=== PATIENT | male | born 1990 | race Caucasian/White ===

== ENCOUNTER 2022-02-21 09:11 | Outpatient (CLI) | payer OTHER, SELFPAY ==
--- OUTSIDE RECORDS SUMMARY | 2022-03-01 10:47 | XMS_ITS | Clinical Summary ---
:1990 Author Organization [facility] [place] [address] Care Team Providers Name Role Phone Jose Alberto Nunes MD Primary Care Provider [phone] Allergies No known active allergies Medications Medication Sig Dispensed Refills Start Date End Date Status cyclobenzaprine Take 1 tablet by 24 tablet 1 08/25/2019 Active (FLEXERIL) 10 mg mouth at bedtime tabletIndications: if needed for Thoracic disc herniation Muscle Spasm. 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 Major depressive disorder, recurrent episode, moderate 06/13/2010 Adjustment disorder with depressed mood 04/14/2009 Resolved Problems Problem Noted Date Resolved Date Depressive disorder, not elsewhere classified 05/29/2006 08/27/2009 Immunizations Name Administration Dates Next Due DTP 02/21/1995, 02/22/1994, 06/09/1990, 01/27/1990, 1989 HIB HbOC (HibTITER) 06/09/1990 Hepatitis B (Peds) 09/19/2000, 12/29/1999, 12/18/1999 Influenza, IIV3 (Age >=3 years) 05/01/2000 MMR 02/10/2002, 10/26/1990 Oral Polio Vaccine 02/21/1995, 02/22/1994, 01/27/1990, 1989 Td (Age >=7 Years) 02/10/2002 Tdap 10/06/2012 Tuberculin (PPD) 05/12/2017, 11/27/2016 Social History Tobacco Use Types Packs/Day Years Used Date Never Smoker Smokeless Tobacco: Never Used Tobacco Cessation: Counseling Given: Yes Alcohol Use Standard Drinks/Week Comments Yes 0 (1 standard drink = 0.6 oz pure alcoho l) Alcohol Habits Answer Date Recorded How often do you have a drink containing alcohol? Monthly or less 08/22/2018 How many drinks containing alcohol do you have on a 1 or 2 08/22/2018 typical day when you are drinking? How often do you have six or more drinks on one Never 08/22/2018 occasion? Comment: Not asked Sex Assigned at Date Recorded Not on file Obstetrics History Last Filed Vital Signs Vital Sign Reading Time Taken Comments Blood Pressure 146/74 11/17/2019 2:11 PM CDT Pulse 87 11/17/2019 2:11 PM CDT Temperature 37 ??C (98.6 ??F) 11/17/2019 2:11 PM CDT Respiratory Rate 14 04/03/2017 1:28 PM CDT Oxygen Saturation 98% 11/17/2019 2:11 PM CDT Inhaled Oxygen Concentration - - Weight 104.3 kg (230 lb) 11/17/2019 2:11 PM CDT Height 188 cm (6' 2) 08/22/2018 9:13 AM BAND DIRECTOR Body Mass Index 29.53 08/22/2018 9:13 AM BAND DIRECTOR Plan of Treatment Health Maintenance Due Date Last Done Comments COVID-19 vaccine series (#1) 01/16/1990 Hepatitis C screening for age 0107/19/2007 18-79 Depression screening for age 12+ 11/27/2017 11/27/2016, 04/2016 BMI (ht and wt on same day) for 08/23/2019 08/22/2018, 03/23, age 18+ 01/10/2017, Additional history exists Influenza for age 9-49 02/21/2022 05/01/2000 Tetanus booster 10/06/2022 10/06/2012, 02/10/2002 Tdap Completed 10/06/2012 Results Not on filefrom Last 3 Months Insurance Payer Benefit Plan / Subscriber ID Effective Dates Phone Addre ss Type Group PREFERRED ONE PREFERRED ONE [id number] 2018-Present [address] [place] [address] Care Teams Gasoline Finisher Relationship Specialty Start Date End Date Jose Alberto Nunes MD PCP - General 06/03/07 [address] [place] [address]
== END 2022-02-21 09:12 | disposition home or self-care (01) ==
LOC: NFLDREF 03-01 09:34
PROVIDERS: PCP Family Medicine; Visit Provider Family Medicine
DX: Z11.52 Encounter for screening for COVID-19 (principal)
CPT/HCPCS: 87635

== ENCOUNTER 2022-04-30 15:56 | Emergency (ER) | payer OTHER, SELFPAY ==
[2022-04-30 16:06] VITALS: BP 170/91; RESP 18; TEMP 37.3; O2SAT 98; BMI 29.7
--- NOTE | 2022-04-30 16:30 | CRLHL7_ITS ---
For Patients: As a result of the Century Cures Act, medical imaging exams and procedure reports are released immediately into your electronic medical record. You may view this report before your referring provider. If you have questions, please contact your health care provider. INDICATION: AFib last night. TECHNIQUE: Chest 1 view. COMPARISON: Chest radiograph 10/06/2021. FINDINGS: No focal consolidation, pleural effusion, or pneumothorax. Normal heart size and pulmonary vascularity. The bones are unremarkable. IMPRESSION: No acute cardiopulmonary findings. Dictated by Celsa Acosta MD @ 04/30/2022 6:02:06 PM (Electronically Signed)
[2022-04-30 17:00] VITALS: BP 133/81; PULSE 71; RESP 12; O2SAT 97
[2022-04-30 17:18] LABS: Basophils Absolute Auto 0.03 K/uL (0.00-0.30); Basophils Percent Auto 0.5 % (0.0-3.0); Eosinophils Absolute Auto 0.16 K/uL (0.00-0.50); Eosinophils Percent Auto 2.6 % (0.0-7.0); Hematocrit 52.3 % (37.0-53.0); Hemoglobin* 17.2 gm/dL (13.5-17.5); Immature Granulocytes Abs Auto 0.01 K/uL (0.00-0.30); Immature Granulocytes Pct Auto 0.2 %; Lymphocytes Absolute Auto 1.72 K/uL (0.90-2.90); Lymphocytes Percent Auto 28.4 % (20-44); Mean Corpuscular HGB Conc 33 gm/dL (32-36); Mean Corpuscular Hemoglobin 30 pg (26-34); Mean Corpuscular Volume 91 fL (80-100); Neutrophils Absolute Auto 3.28 K/uL (1.7-7.0); Neutrophils Percent Auto 54.3 % (42.0-72.0); Platelet Count* 257 K/uL (140-440); RDW Coefficient of Variation % 13.8 % (11.5-15.5); Red Blood Count 5.78 m/uL (4.30-5.90); White Blood Count* 6.05 K/uL (4.50-11.00)
--- OUTSIDE RECORDS SUMMARY | 2022-04-30 17:23 | XMS_ITS | Clinical Summary ---
:1990 Author Organization [facility] [place] [address] Care Team Providers Name Role Phone Jose Alberto Nunes MD Primary Care Provider [phone] Allergies No known active allergies Medications Medication [...] 188 cm (6' 2) 08/22/2018 9:13 AM HOME DESIGNER Body Mass Index 29.53 08/22/2018 9:13 AM HOME DESIGNER Plan of Treatment Health Maintenance Due Date [...] ss Type Group PREFERRED ONE PREFERRED ONE [id number] 2018-Present [address] [place] [address] Care Teams Emergency Specialist Relationship Specialty Start Date End Date Jose Alberto Nunes MD PCP - General 06/03/07 [address] [place] [address]
[2022-04-30 17:30] VITALS: BP 125/78; PULSE 79; RESP 16; O2SAT 98
[2022-04-30 17:34] LABS: Slide Review Reflex No
[2022-04-30 17:35] LABS: Chloride* 103 mmol/L (96-114); Sodium* 139 mmol/L (135-149)
[2022-04-30 17:38] LABS: Blood Urea Nitrogen* 17 mg/dL (5-24); Calcium* 9.3 mg/dL (8.4-10.6); Carbon Dioxide* 27 mmol/L (20-32); Creatinine* 1.6 mg/dL (0.5-1.5); Est. Creatinine Clearance* 74.91; Estimated Glomerular Filt Rate 58 ml/min; Glucose* 87 mg/dL (60-115)
[2022-04-30 17:42] LABS: D Dimer Quantitative* < 0.27 ug/ml (0.00-0.50)
[2022-04-30 17:52] LABS: Troponin I* < 0.01 ng/mL (0.01-0.04)
[2022-04-30 18:00] VITALS: BP 135/88; PULSE 77; RESP 18; O2SAT 98
--- NOTE | 2022-04-30 18:03 | ED_ITS ---
HPI - Arrhythmia/Palpitations General Chief Complaint: Arrhythmia/Palpitations Stated Complaint: Afib last night Time Seen by Provider: 04/30/22 16:00 History of Present Illness HPI narrative: Pt is an otherwise healthy 31 year old gentleman who during exercise last night developed palpitations. Pt felt somewhat breathless during this event. Pt rested and his symptoms improved athough the sensation of a rapid irregular heart beat persisted. Pt's watch began telling him shortly after exercise that he was in atrial fibrillation. This persisted until this morning at which time the watch indicated that he was back in sinus rhythm. I was able to review his watch EKG and it appeared to show sinus rhythm. Pt states his heart rate is usually 60 and because the rate persisted in the 80's he presented to his PCP where EKG showed sinus rhythm with ST segment depression most strikingly in leads II and AVF. Pt presents to the ED for further evaluation. No stimulant use or history of similar symptoms. Related Data Home Medications Medication Instructions Recorded Confirmed multivitamin (Daily Multi-Vitamin 1 tab PO QDAY 12/31/21 04/30/22 tablet) omega 6-eiv-oam-fish oil 300 1 cap PO QDAY 12/31/21 04/30/22 mg-1,000 mg capsule (Fish Oil) cholecalciferol (vitamin D3) 125 125 mcg PO QDAY 04/30/22 04/30/22 mcg (5,000 unit) capsule Allergies Allergy/AdvReac Type Severity Reaction Status Date / Time No Known Drug Allergies Allergy Verified 04/30/22 14:58 Review of Systems Status of ROS: Reports: 10 or more systems reviewed and unremarkable except as noted in History and below PFSH PFS Medical History Attention deficit hyperactivity disorder (ADHD) Depression History of herniated intervertebral disc Hyperlipidemia Hypothyroidism Surgical History History of arthroscopy of right knee Social History Smoking Status: Never smoker Do you use any of these nicotine containing products: None Second hand tobacco smoke exposure: No How often do you have a drink containing alcohol: monthly or less How many standard drinks containing alcohol do you have on a typical day: 1 or 2 How often do you have six or more drinks on one occasion: Never AUDIT-C Alcohol total score: 1 Non-prescribed substance use: denies use Little interest or pleasure in doing things: several days Feeling down, depressed, or hopeless: several days service: No Exam Narrative: Exam Narrative: EXAM GENERAL: Patient appears comfortable and well. EYES: No scleral icterus. ENT: Tympanic membranes and oropharynx normal. THYROID: no thyroid nodules or thyromegaly. LYMPH: No supraclavicular or cervical lymphadenopathy. SKIN: Visible skin seen during exam normal or with benign process only. EXT: No dependent lower extremity pedal edema. HEART: Regular rate and rhythm with no murmurs, rubs, or gallops. LUNGS: Clear to auscultation bilaterally with no crackles or wheezes. ABD: Soft, non tender, non distended. PSYCH: Good eye contact, speech is not pressured. Const: Vital Signs, click to edit/add: Vital Signs - 24 hr 04/30/22 16:06 Temperature 99.1 F Respiratory Rate 18 [facility] 170/91 H Pulse Oximetry 98 Oxygen Delivery Me thod Room Air Course Course Hospital Course: Pt seen and examined. CXR, Troponin, D Dimer, CBC, BMP ordered. Pt placed on tele Reevaluation(s) Reevaluation #1: Labs return. Normal. Pt resting comfortably. EKG sent to Cardiology for over read. Time: 18:10 Vital Signs Vital signs: Initial Vital Signs Temperature 99.1 F 04/30/22 16:06 Temperature Source Temporal Artery Scan 04/30/22 16:06 Respiratory Rate 18 04/30/22 16:06 Blood Pressure 170/91 H 04/30/22 16:06 Blood Pressure Mean 117 04/30/22 16:06 Blood Pressure Position Sitting 04/30/22 16:06 Pulse Oximetry 98 04/30/22 16:06 Oxygen Delivery Method 04/30/22 16:06 Vital Signs Temperature 99.1 F 04/30/22 16:06 Respiratory Rate 18 04/30/22 16:06 Blood Pressure 170/91 H 04/30/22 16:06 Pulse Oximetry 98 04/30/22 16:06 Oxygen Delivery Method 04/30/22 16:06 Temperature 99.1 F 04/30/22 16:06 Respiratory Rate 18 04/30/22 16:06 Blood Pressure 170/91 H 04/30/22 16:06 Pulse Oximetry 98 04/30/22 16:06 Oxygen Delivery Method 04/30/22 16:06 MDM - Arrhythmia/Palpitations MDM Narrative Medical decision making narrative: Pt present with concerning symptoms of palpitations. Largely resolved. EKG shows ST segment depression inferiorly. Labs including Troponin, D dimer, CBC, BMP CXR all reassuring. Pt's EKG shared with cardiology who feel the changes seen are due to repolarization. Pt will be discharged with outpt Echo and Holter, PCP follow up. Differential Diagnosis Differential diagnosis: Likely palpitations, anxiety, sinus tachycardia, artial fibrillation, artial flutter, ventricular premature beats, supraventricular tachycardia, ventricular tachycardia and WPW Lab Data Labs: Lab Results 04/30/22 04/30/22 04/30/22 Range/Units 17:14 17:14 17:14 WBC 6.05 (4.50-11.00) K/uL RBC 5.78 (4.30-5.90) m/uL Hgb 17.2 (13.5-17.5) gm/dL Hct 52.3 (37.0-53.0) % MCV 91 (80-100) fL MCH 30 (26-34) pg MCHC 33 (32-36) gm/dL RDW Coeff of Doron 13.8 (11.5-15.5) % Plt Count 257 (140-440) K/uL Neut % (Auto) 54.3 (42.0-72.0) % Lymph % (Auto) 28.4 (20-44) % [place] % (Auto) 14.0 H (0.0-11.0) % Eos % (Auto) 2.6 (0.0-7.0) % Baso % (Auto) 0.5 (0.0-3.0) % Neut # (Auto) 3.28 (1.7-7.0) K/uL Lymph # (Auto) 1.72 (0.90-2.90) K/uL [place] # (Auto) 0.80 (0.00-0.90) K/UL Eos # (Auto) 0.16 (0.00-0.50) K/uL Baso # (Auto) 0.03 (0.00-0.30) K/uL Abs Immat Gran (auto) 0.01 (0.00-0.30) K/uL Imm/Tot Granulo (auto) 0.2 % D-Dimer Quant (PE/DVT) < 0.27 (0.00-0.50) ug/ml Sodium 139 (135-149) mmol/L Potassium 4.0 (3.6-5.1) mmol/L Chloride 103 (96-114) mmol/L Carbon Dioxide 27 (20-32) mmol/L BUN 17 (5-24) mg/dL Creatinine 1.6 H (0.5-1.5) mg/dL Estimated Creat Clear 74.91 Estimated GFR 58 ml/min Glucose 87 (60-115) mg/dL Calcium 9.3 (8.4-10.6) mg/dL Troponin I < 0.01 L (0.01-0.04) ng/mL Discharge Plan Discharge Clinical Impression: Heart palpitations Patient Disposition: Home, Self-Care Condition: Stable Instructions: Heart Palpitations (ED) Additional Instructions: Holter Monitor and Echo through PCP Follow up if symptoms worsen. Activity Level: No Restrictions Discharge Diet: Regular Prescriptions: No Action multivitamin [Daily Multi-Vitamin] Tablet 1 tab PO QDAY omega 1-lyr-pxi-fish oil [Fish Oil] 300-1,000 mg capsule 1 cap PO QDAY cholecalciferol (vitamin D3) 125 mcg (5,000 unit) capsule 125 mcg PO QDAY Follow Up/Referrals: Jose Alberto Nunes MD [Primary Care Provider] - Stand Alone Forms: MyHealth Info Instructions
== END 2022-04-30 18:32 | disposition home or self-care (01) ==
PROVIDERS: Emergency Provider Internal Medicine; PCP Family Medicine
DX: R00.2 Palpitations (principal)
CPT/HCPCS: 36415; 71045; 80048; 84484; 85025; 85379; 99283

== ENCOUNTER 2022-05-03 13:26 | Outpatient (CLI) | payer OTHER, SELFPAY ==
--- OUTSIDE RECORDS SUMMARY | 2022-05-03 13:29 | XMS_ITS | Clinical Summary ---
:1990 Author Organization [facility] [place] [address] Care Team Providers Name Role Phone Jose Alberto Nunes MD Primary Care Provider [phone] Allergies No known active allergies Medications Medication [...] 188 cm (6' 2) 08/22/2018 9:13 AM ORGANIZATIONAL CONSULTANT Body Mass Index 29.53 08/22/2018 9:13 AM ORGANIZATIONAL CONSULTANT Plan of Treatment Health Maintenance Due Date [...] ss Type Group PREFERRED ONE PREFERRED ONE [id number] 2018-Present [address] [place] [address] Care Teams Driver Messenger Relationship Specialty Start Date End Date Jose Alberto Nunes MD PCP - General 06/03/07 [address] [place] [address]
== END 2022-05-03 13:27 | disposition home or self-care (01) ==
LOC: RAD 13:26
PROVIDERS: PCP Family Medicine; Visit Provider Internal Medicine
DX: R00.2 Palpitations (principal); R93.3 Abnormal findings on diagnostic imaging of other parts of digestive tract
CPT/HCPCS: 93225; 93226; 93306

== ENCOUNTER 2022-05-07 06:47 | Emergency (ER) | payer OTHER, SELFPAY ==
--- NOTE | 2022-05-07 06:50 | ED_ITS ---
HPI - Chest Pain General Time Seen by Provider: 06:50 Date Seen: 05/07/22 Chief Complaint: Chest Pain Stated Complaint: Chest pain Time Seen by Provider: 05/07/22 06:48 Source: patient, RN notes reviewed and old records reviewed Mode of arrival: ambulatory Limitations: no limitations History of Present Illness HPI narrative: Tri is a very pleasant 31-year-old gentleman with a history hyperlipidemia who comes to the emergency room for evaluation of chest pain. Chest pain is under in ongoing since April 30. It is associated with significant fatigue and exercise intolerance. Hans had the onset of chest discomfort and fluttering in his chest on the evening of April 29. He had just finished being very active when he had the chest fluttering and a rapid heart rate into the 120s. He laid back down and his elevated heart rate persisted. His phone even signal that he was in atrial fibrillation which he had never experienced before. He was seen on 04/30 at which time an EKG did show ST depression and T-wave inversion in the inferior lateral leads. However, he had a negative troponin, chest x-ray that was negative and was discharged with instructions to have outpatient echocardiogram. His echocardiogram was done on 05/03 and was normal and reassuring. However, he tells me that he still has ongoing discomfort in his chest but more concerning to him is is exercise intolerance. He is somebody that normally bike 60 miles a week and works out daily. He notes that now simply dressing himself takes extra effort. He does not describe significant shortness of breath but just the inability to complete exercise. He states that he is able to do a light walk but anything more than that increases his symptoms of chest discomfort and fatigue. He denies a cough, fever, nausea, vomiting, diarrhea, painful urination, lower extremity edema history of DVT or calf pain. Related Data Home Medications Medication Instructions Recorded Confirmed multivitamin (Daily Multi-Vitamin 1 tab PO QDAY 12/31/21 04/30/22 tablet) omega 0-glv-ozk-fish oil 300 1 cap PO QDAY 12/31/21 04/30/22 mg-1,000 mg capsule (Fish Oil) cholecalciferol (vitamin D3) 125 125 mcg PO QDAY 04/30/22 04/30/22 mcg (5,000 unit) capsule Allergies Allergy/AdvReac Type Severity Reaction Status Date / Time No Known Drug Allergies Allergy Verified 04/30/22 14:58 Review of Systems Const Reports: fatigue; Denies: fever or chills Eyes Denies: change in vision ENMT Denies: throat pain, neck pain, difficulty swallowing or vertigo Cardio Reports: chest pain and palpitations; Denies: edema or swelling of feet/ankles Resp Denies: cough GI Denies: abdominal pain, nausea, vomiting, heartburn, diarrhea or difficulty swallowing Denies: painful urination Musculo Denies: back pain, neck pain or extremity swelling Integ/Breast Denies: rash Neuro Denies: headache, dizziness or vertigo Endo Reports: fatigue; Denies: excessive urination PFSH PFS Medical History Attention deficit hyperactivity disorder (ADHD) Depression History of herniated intervertebral disc Hyperlipidemia Hypothyroidism Surgical History History of arthroscopy of right knee Social History Smoking Status: Never smoker Do you use any of these nicotine containing products: None Second hand tobacco smoke exposure: No How often do you have a drink containing alcohol: monthly or less How many standard drinks containing alcohol do you have on a typical day: 1 or 2 How often do you have six or more drinks on one occasion: Never AUDIT-C Alcohol total score: 1 Non-prescribed substance use: denies use Little interest or pleasure in doing things: several days Feeling down, depressed, or hopeless: several days service: No Exam Narrative Exam Narrative: Hans is alert and oriented. No acute distress. Eyes are clear and face is symmetrical. Neck is supple without lymphadenopathy. Heart with a regular rate and rhythm. However simply sitting up increases heart rate from 70s to low 100s. There is no rub or murmur auscultated. No rub when patient is leaning forward. Lungs are clear in all lung ho. Abdomen soft nontender. Lower extremities without edema. Calf palpation is without tenderness. Negative Homans sign. Const Vital Signs, click to edit/add: Vital Signs - 24 hr 05/07/22 07:00 Temperature 98.7 F Pulse Rate [Right Pulse Oximeter] 74 Respiratory Rate 16 Blood Pressure [Right Upper Arm] 127/69 Pulse Oximetry 98 Oxygen Delivery Method Room Air Documenting provider has reviewed patient's vital signs: yes Course Course Hospital Course: At this time patient has had ongoing chest pain and exercise intolerance for 7 days. He denies fever, trauma, history of DVT/PE or history of underlying cardiac disease. His initial troponin and EKG were done on 04/30. EKG was abnormal with ST depression and T-wave inversion in the inferior lateral leads but a normal troponin, chest x-ray and echocardiogram. As patient has ongoing discomfort we will repeat the EKGs, troponins as well as place patient on cardiac monitoring. Will plan on CT of the chest with normal creatinine. Will plan on cardiac consultation. Reevaluation(s) Reevaluation #1: Patient's creatinine is 1.7. He has hemoglobin of 19 which is increased suggesting hemoconcentration. He is given 2 L of normal saline with planned recheck of creatinine so that we are able to go forward with CT of the chest. Consultations Consultation #1: Had the pleasure of speaking with Dr. Sierra [facility] Cardiology physician. At this time EKGs are reviewed by Dr. Sierra. He does agree with proceeding with CT of the chest. He also believes this gentleman should have a CTA even though we have a negative D-dimer and reassuring initial troponin. Vital Signs Vital signs: Initial Vital Signs Temperature 98.7 F 05/07/22 07:00 Temperature Source Temporal Artery Scan 05/07/22 07:00 Pulse Rate 74 05/07/22 07:00 Pulse Rhythm 05/07/22 07:00 Pulse Strength 0+ Absent 05/07/22 07:00 Respiratory Rate 16 05/07/22 07:00 Blood Pressure 127/69 05/07/22 07:00 Blood Pressure Mean 88 05/07/22 07:00 Blood Pressure Position Supine 05/07/22 07:00 Pulse Oximetry 98 05/07/22 07:00 Oxygen Delivery Method 05/07/22 07:00 Vital Signs Temperature 98.7 F 05/07/22 07:00 Pulse Rate 74 05/07/22 07:00 Respiratory Rate 16 05/07/22 07:00 Blood Pressure 127/69 05/07/22 07:00 Pulse Oximetry 98 05/07/22 07:00 Oxygen Delivery Method 05/07/22 07:00 Temperature 98.7 F 05/07/22 07:00 Pulse Rate 74 05/07/22 07:00 Respiratory Rate 16 05/07/22 07:00 Blood Pressure 127/69 05/07/22 07:00 Pulse Oximetry 98 05/07/22 07:00 Oxygen Delivery Method 05/07/22 07:00 MDM - Chest Pain MDM Narrative Medical decision making narrative: 1. Chest pain 2. Exercise intolerance -negative echocardiogram. Initial troponin negative. EKG initially does show ST depression with T-wave inversion inferior lateral leads. 3. Disposition-signed out into the care of my partner Dr. Zamorano who will review 2nd troponin, creatinine, EKG. Dr. Sierra is our contact with [facility]. He will need to be contacted with results of CT of the chest. If negative CTA angiogram is suggested by Cardiology. Medical Records Data Attestation: I reviewed the patient's medical records. Lab Data Attestation: I reviewed the patient's lab results. Labs: Lab Results 05/07/22 05/07/22 05/07/22 Range/Units 06:48 06:48 06:48 WBC (4.50-11.00) K/uL RBC (4.30-5.90) m/uL Hgb (13.5-17.5) gm/dL Hct (37.0-53.0) % MCV (80-100) fL MCH (26-34) pg MCHC (32-36) gm/dL RDW Coeff of Doron (11.5-15.5) % Plt Count (140-440) K/uL Neut % (Auto) (42.0-72.0) % Lymph % (Auto) (20-44) % [place] % (Auto) (0.0-11.0) % Eos % (Auto) (0.0-7.0) % Baso % (Auto) (0.0-3.0) % Neut # (Auto) (1.7-7.0) K/uL Lymph # (Auto) (0.90-2.90) K/uL [place] # (Auto) (0.00-0.90) K/UL Eos # (Auto) (0.00-0.50) K/uL Baso # (Auto) (0.00-0.30) K/uL Abs Immat Gran (auto) (0.00-0.30) K/uL Imm/Tot Granulo (auto) % D-Dimer Quant (PE/DVT) < 0.27 (0.00-0.50) ug/ml Sodium 138 (135-149) mmol/L Potassium 4.3 (3.6-5.1) mmol/L Chloride 103 (96-114) mmol/L Carbon Dioxide 27 (20-32) mmol/L BUN 16 (5-24) mg/dL Creatinine 1.7 H (0.5-1.5) mg/dL Estimated Creat Clear 70.50 Estimated GFR 54 ml/min Glucose 95 (60-115) mg/dL Calcium 9.4 (8.4-10.6) mg/dL Magnesium 2.0 Cancelled (1.5-2.6) mg/dL Total Bilirubin 1.0 (0.1-1.5) mg/dL AST 32 (12-35) U/L ALT 33 (4-50) U/L Alkaline Phosphatase 39 L (40-150) U/L C-Reactive Protein < 0.5 L (0.5-1.0) mg/dL Total Protein 7.5 (6.0-8.3) g/dL Albumin 4.7 (3.3-5.0) g/dL TSH (0.270-4.20) uIU/mL SARS-CoV-2 (PCR) (Negative) Influenza Type A (PCR) (Negative) Influenza Type B (PCR) (Negative) RSV (PCR) (Negative) POC Troponin I (0.01-0.04) ng/ml 05/07/22 05/07/22 05/07/22 Range/Units 06:48 06:50 06:55 WBC 5.12 (4.50-11.00) K/uL RBC 6.30 H (4.30-5.90) m/uL Hgb 19.0 H (13.5-17.5) gm/dL Hct 56.9 H (37.0-53.0) % MCV 90 (80-100) fL MCH 30 (26-34) pg MCHC 33 (32-36) gm/dL RDW Coeff of Doron 13.3 (11.5-15.5) % Plt Count 233 (140-440) K/uL Neut % (Auto) 47.6 (42.0-72.0) % Lymph % (Auto) 34.6 (20-44) % [place] % (Auto) 11.5 H (0.0-11.0) % Eos % (Auto) 5.7 (0.0-7.0) % Baso % (Auto) 0.4 (0.0-3.0) % Neut # (Auto) 2.44 (1.7-7.0) K/uL Lymph # (Auto) 1.77 (0.90-2.90) K/uL [place] # (Auto) 0.60 (0.00-0.90) K/UL Eos # (Auto) 0.29 (0.00-0.50) K/uL Baso # (Auto) 0.02 (0.00-0.30) K/uL Abs Immat Gran (auto) 0.01 (0.00-0.30) K/uL Imm/Tot Granulo (auto) 0.2 % D-Dimer Quant (PE/DVT) (0.00-0.50) ug/ml Sodium (135-149) mmol/L Potassium (3.6-5.1) mmol/L Chloride (96-114) mmol/L Carbon Dioxide (20-32) mmol/L BUN (5-24) mg/dL Creatinine (0.5-1.5) mg/dL Estimated Creat Clear Estimated GFR ml/min Glucose (60-115) mg/dL Calcium (8.4-10.6) mg/dL Magnesium (1.5-2.6) mg/dL Total Bilirubin (0.1-1.5) mg/dL AST (12-35) U/L ALT (4-50) U/L Alkaline Phosphatase (40-150) U/L C-Reactive Protein (0.5-1.0) mg/dL Total Protein (6.0-8.3) g/dL Albumin (3.3-5.0) g/dL TSH 4.730 H (0.270-4.20) uIU/mL SARS-CoV-2 (PCR) (Negative) Influenza Type A (PCR) (Negative) Influenza Type B (PCR) (Negative) RSV (PCR) (Negative) POC Troponin I 0.00 L (0.01-0.04) ng/ml 11/15/22 Range/Units 07:52 WBC (4.50-11.00) K/uL RBC (4.30-5.90) m/uL Hgb (13.5-17.5) gm/dL Hct (37.0-53.0) % MCV (80-100) fL MCH (26-34) pg MCHC (32-36) gm/dL RDW Coeff of Doron (11.5-15.5) % Plt Count (140-440) K/uL Neut % (Auto) (42.0-72.0) % Lymph % (Auto) (20-44) % [place] % (Auto) (0.0-11.0) % Eos % (Auto) (0.0-7.0) % Baso % (Auto) (0.0-3.0) % Neut # (Auto) (1.7-7.0) K/uL Lymph # (Auto) (0.90-2.90) K/uL [place] # (Auto) (0.00-0.90) K/UL Eos # (Auto) (0.00-0.50) K/uL Baso # (Auto) (0.00-0.30) K/uL Abs Immat Gran (auto) (0.00-0.30) K/uL Imm/Tot Granulo (auto) % D-Dimer Quant (PE/DVT) (0.00-0.50) ug/ml Sodium (135-149) mmol/L Potassium (3.6-5.1) mmol/L Chloride (96-114) mmol/L Carbon Dioxide (20-32) mmol/L BUN (5-24) mg/dL Creatinine (0.5-1.5) mg/dL Estimated Creat Clear Estimated GFR ml/min Glucose (60-115) mg/dL Calcium (8.4-10.6) mg/dL Magnesium (1.5-2.6) mg/dL Total Bilirubin (0.1-1.5) mg/dL AST (12-35) U/L ALT (4-50) U/L Alkaline Phosphatase (40-150) U/L C-Reactive Protein (0.5-1.0) mg/dL Total Protein (6.0-8.3) g/dL Albumin (3.3-5.0) g/dL TSH (0.270-4.20) uIU/mL SARS-CoV-2 (PCR) Negative SARS-CoV-2 (Negative) Influenza Type A (PCR) Negative PCR FLU A (Negative) Influenza Type B (PCR) Negative PCR FLU B (Negative) RSV (PCR) Negative PCR RSV (Negative) POC Troponin I (0.01-0.04) ng/ml ECG Data Attestation: I personally reviewed and interpreted this ECG as follows: ECG interpretation date: 05/07/22 ECG interpretation time: 09:06 Prior ECG tracings: available for review Interpretation: EKG by my read shows sinus rhythm at a rate 95. Patient is noted to have ST depression in the inferior lateral leads with T-wave inversion. However this has improved somewhat since EKG from 04/30. Discharge Plan Discharge Prescriptions: No Action multivitamin [Daily Multi-Vitamin] Tablet 1 tab PO QDAY omega 8-zfj-npf-fish oil [Fish Oil] 300-1,000 mg capsule 1 cap PO QDAY cholecalciferol (vitamin D3) 125 mcg (5,000 unit) capsule 125 mcg PO QDAY Follow Up/Referrals: Jose Alberto Nunes MD [Staff Physician] -
[2022-05-07 07:00] VITALS: BP 127/69; PULSE 74; PULSE 92; RESP 16; RESP 18; TEMP 37.1; O2SAT 96; O2SAT 98; BMI 29.7
[2022-05-07 07:02] LABS: Basophils Absolute Auto 0.02 K/uL (0.00-0.30); Basophils Percent Auto 0.4 % (0.0-3.0); Eosinophils Absolute Auto 0.29 K/uL (0.00-0.50); Eosinophils Percent Auto 5.7 % (0.0-7.0); Hematocrit 56.9 % (37.0-53.0); Immature Granulocytes Abs Auto 0.01 K/uL (0.00-0.30); Immature Granulocytes Pct Auto 0.2 %; Lymphocytes Absolute Auto 1.77 K/uL (0.90-2.90); Lymphocytes Percent Auto 34.6 % (20-44); Mean Corpuscular HGB Conc 33 gm/dL (32-36); Mean Corpuscular Hemoglobin 30 pg (26-34); Mean Corpuscular Volume 90 fL (80-100); Monocytes Percent Auto 11.5 % (0.0-11.0); Neutrophils Absolute Auto 2.44 K/uL (1.7-7.0); Neutrophils Percent Auto 47.6 % (42.0-72.0); Platelet Count* 233 K/uL (140-440); RDW Coefficient of Variation % 13.3 % (11.5-15.5); White Blood Count* 5.12 K/uL (4.50-11.00)
[2022-05-07 07:08] LABS: Slide Review Reflex No
[2022-05-07 07:23] LABS: Albumin* 4.7 g/dL (3.3-5.0); Chloride* 103 mmol/L (96-114); Sodium* 138 mmol/L (135-149)
[2022-05-07 07:24] LABS: Potassium* 4.3 mmol/L (3.6-5.1)
[2022-05-07 07:26] LABS: Creatinine* 1.7 mg/dL (0.5-1.5); Estimated Glomerular Filt Rate 54 ml/min
[2022-05-07 07:27] LABS: Alanine Aminotransferase* 33 U/L (4-50); Alkaline Phosphatase* 39 U/L (40-150); Aspartate Amino Transferase* 32 U/L (12-35); Blood Urea Nitrogen* 16 mg/dL (5-24); Calcium* 9.4 mg/dL (8.4-10.6); Carbon Dioxide* 27 mmol/L (20-32); Glucose* 95 mg/dL (60-115); Total Protein* 7.5 g/dL (6.0-8.3)
[2022-05-07 07:31] LABS: C Reactive Protein* < 0.5 mg/dL (0.5-1.0)
--- OUTSIDE RECORDS SUMMARY | 2022-05-07 07:32 | XMS_ITS | Clinical Summary ---
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 Body Mass Index 29.53 08/22/2018 9:13 AM FUEL CELL ENGINEER Plan of Treatment Health Maintenance Due Date Last Done Comments COVID-19 vaccine series (#1) 01/16/1990 Hepatitis C screening for age 0107/19/2007 18-79 Depression screening for age 12+ 11/27/2017 11/27/2016, 04/2016 BMI (ht and wt on same day) for 08/23/2019 08/22/2018, 03/23, age 18+ 01/10/2017, Additional history exists Influenza for age 9-49 02/21/2022 05/01/2000 Tetanus booster 10/06/2022 10/06/2012, 02/10/2002 Tdap Completed 10/06/2012 Procedures Procedure Name Priority Date/Time Associated Diagnosis Comme nts ECHO COMPLETE WO Routine 05/03/2022 2:35 PM Palpitations Resul ts for this CONTRAST FUEL CELL ENGINEER procedure are i n the results section. from Last 3 Months Results ECHO COMPLETE WO CONTRAST (05/03/2022 2:35 PM FUEL CELL ENGINEER) P athologist Signature AORTIC VALVE 8 mmHg MEAN PG EJECTION 67 % FRACTION LVEDD 5.5 cm EJECTION 65 - 70% FRACTION Anatomical Region Laterality Modality HEART Ultrasound Specimen (Source) Anatomical Collection Method Collection Time Re ceived Time Location / / Volume Laterality 05/03/2022 2:12 PM FUEL CELL ENGINEER Narrative 05/03/2022 3:00 PM FUEL CELL ENGINEER ECHOCARDIOGRAM CHATO RAMIREZ ? Accessi on#: ?? [id number] : ?1990 31 years Study Date: ?? 05/03/2022 2:12:29 PM Gender: M ?BP: ? 154/80 mmHg Height: 185.00 cm ?BSA: ?2.26 m? ?? Weight: 102.00 kg ?Tech: ? MCK ? Referring MD: DIAZ WYATT Site: ? [facility] Reading Location: [facility] Procedure: 2D, Color Doppler and Spectra l Doppler. Indication for study: Palpitations, Abn EKG, ? inferior WMA Cardiac Rhythm: Regular.Study quality: G ood. Final Impressions: 1. Normal echocardiogram. 2. Normal LV size, normal wall thicknes s, normal function with an estimated EF of 65 - 70%. 3. Right ventricular cavity size is nor mal, global systolic RV function is normal. 4. No significant valve disease detecte d. Comparison There are no prior studies on this patie nt for comparison purposes. Chamber Sizes and Function Normal left ventricular size, normal wal l thickness, normal global systolic function with an estimated EF of 65 - 70%. Left atrial size is normal. Left atrial pressure is normal. Right ventricular cavit y size is normal, global systolic RV fun ction is normal. RV wall thickness is normal. The right atrium is normal. Right atrial volume index is 17 ml/m? ??. Right atrial area is 15 cm? ??. The pulmonary artery is of normal size and origin. The sinus of Valsalva is normal sized. The ascending aorta is normal sized. Valves, RV Pressures and Diastolic Funct ion The aortic valve is normal in structure and trileaflet, no stenosis and no regurgitation. The mitral valve is normal in structure, trace mitral regurgitation. Normal diastolic function. The tricuspid va lve is normal in structure. Tricuspid re gurgitation is trace regurgitation. The pulmonic valve is normal. No pulmonary regurgitation. Masses, Effusion, Shunts There is no pericardial effusion. The in ferior vena cava is normal sized, respiratory size variation greater than 50%. No left to right shunting was detected by limited color flow Doppler interrogation of the interatrial septum. MEASUREMENTS AND CALCULATIONS 2-D Measurements and LV Function: LVID (d) 5.5 cm LV FS% (2D) ?? 35 % LVID (s) 3.6 cm LVOT diameter 2.2 cm IVS (d) ??1.2 cm HR ?76 bpm LVPW (d) 1.2 cm LA Vol index ??20 ml/m2 Ao Sinus 2.9 cm RA Vol index ??17 ml/m2 Asc Ao ?? 3.0 cm RA area ? 15 cm? ?? LA ? 3.5 cm RV Max 4C (d) 2.8 cm Diastology: Mitral ?Tissue Doppler ?Pulmonary veins E Peak 1.0 m/s ??e', Septum ? 0.13 m /s Pulm s ?67.7 cm/s A Peak 0.6 m/s ??e', Lateral ?0.23 m /s Pulm d ?72.0 cm/s E/A ?1.8 ?E/e' Average ?? 5.7 8 ? Pulm s/d ratio ??0.94 DT ? 225 msec IVRT ?? 86 msec Aortic Valve: Vmax ? 2.1 m/s ??JONO (V) ?? 2.65 cm? ?? VTI ?0.36 m ?? JONO (I ) ?? 2.82 cm? ?? LVOT V max ? 1.5 m/s ??Max PG ?17 mmHg LVOT VTI ? 0.27 m ?? Mean PG ? ? 8 mmHg SV ? 101 ml ?? Dim In dex 0.76 SV index ? 45 ml/m? ?? CO ?7.6 l/min AV Ejection Time 0.28 sec CI ? 3.4 l/min/m? ?? AV Flow Rate ? 361 ml/s Mitral Valve: MVA ?3.4 cm? ?? MV P 1/2 65 msec Tricuspid Valve and estimated PA pressur es: TAPSE 3.0 cm . This study was interpreted by an [facility] red[facility] facility. CC: [facility]. ??Final ?? Procedure Note Chato Sierra MD - 05/03/2022Fo rmatting of this note might be different from the original. ECHOCARDIOGRAM CHATO RAMIREZ : 1990 31 years Study Date: 04/23 2:12:29 PM Gender: M BP: 154/80 mmHg Height: 185.00 cm BSA: 2.26 m? ?? Weight: 102.00 kg Tech: [place] Referring MD: DIAZ WYATT Site: [facility] Reading Location: [facility] Procedure: 2D, Color Doppler and Spectra l Doppler. Indication for study: Palpitations, Abn EKG, ? inferior WMA Cardiac Rhythm: Regular.Study quality: G ood. Final Impressions: 1. Normal echocardiogram. 2. Normal LV size, normal wall thicknes s, normal function with an estimated EF of 65 - 70%. 3. Right ventricular cavity size is nor mal, global systolic RV function is normal. 4. No significant valve disease detecte d. Comparison There are no prior studies on this patie nt for comparison purposes. Chamber Sizes and Function Normal left ventricular size, normal wal l thickness, normal global systolic function with an estimated EF of 65 - 70%. Left atrial size is normal. Left atrial pressure is normal. Right ventricular cavity size is normal, global systolic RV function is n ormal. RV wall thickness is normal. The right atrium is normal. Right atrial volume index is 17 ml/m? ??. Right atrial area is 15 cm? ??. The pulmonary artery is of normal size and origin. The sinus of Valsalva i s normal sized. The ascending aorta is normal sized. Valves, RV Pressures and Diastolic Funct ion The aortic valve is normal in structure and trileaflet, no stenosis and no regurgitation. The mitral valve is normal in structure, trace mitral regurgitation. Normal diastolic function. The tricuspid valve is normal in structure. Tricuspid regurgitation is tr joy regurgitation. The pulmonic valve is normal. No pulmonary regurgitation. Masses, Effusion, Shunts There is no pericardial effusion. The in ferior vena cava is normal sized, respiratory size variation greater than 50%. No left to right shunting was detected by limited color flow Doppler interrogation of the interatrial septum. MEASUREMENTS AND CALCULATIONS 2-D Measurements and LV Function: LVID (d) 5.5 cm LV FS% (2D) 35 % LVID (s) 3.6 cm LVOT diameter 2.2 cm IVS (d) 1.2 cm HR 76 bpm LVPW (d) 1.2 cm LA Vol index 20 ml/m2 Ao Sinus 2.9 cm RA Vol index 17 ml/m2 Asc Ao 3.0 cm RA area 15 cm? ?? LA 3.5 cm RV Max 4C (d) 2.8 cm Diastology: Mitral Tissue Doppler Pulmonary veins E Peak 1.0 m/s e', Septum 0.13 m/s Pulm s 67.7 cm/s A Peak 0.6 m/s e', Lateral 0.23 m/s Pulm d 72.0 cm/s E/A 1.8 E/e' Average 5.78 Pulm s/d ratio 0.94 DT 225 msec IVRT 86 msec Aortic Valve: Vmax 2.1 m/s JONO (V) 2.65 cm? ?? VTI 0.36 m JONO (I) 2.82 cm? ?? LVOT V max 1.5 m/s Max PG 17 mmHg LVOT VTI 0.27 m Mean PG 8 mmHg SV 101 ml Dim Index 0.76 SV index 45 ml/m? ?? CO 7.6 l/min AV Ejection Time 0.28 sec CI 3.4 l/min/m ? ?? AV Flow Rate 361 ml/s Mitral Valve: MVA 3.4 cm? ?? MV P 1/2 65 msec Tricuspid Valve and estimated PA pressur es: TAPSE 3.0 cm . This study was interpreted by [facility]. CC: [facility]. Final Diaz Wyatt MD ECHO ORD from Last 3 Months Insurance Payer Benefit Plan / Subscriber ID Effective Dates Phone Addre ss Type Group PREFERRED ONE PREFERRED ONE [id number] 2018-Present [address] [place] [address] Care Teams Manager Pacu Relationship Specialty Start Date End Date Jose Alberto Nunes MD PCP - General 06/03/07 [address] [place] [address]
[2022-05-07 07:39] LABS: D Dimer Quantitative* < 0.27 ug/ml (0.00-0.50)
[2022-05-07 08:00] VITALS: BP 122/86; PULSE 74; RESP 18; O2SAT 97
[2022-05-07] MEDS: 0.9 % SODIUM CHLORIDE 1000 ml 1,000 ML IV ×2 (08:00→08:48)
[2022-05-07 09:00] LABS: PCR FLU A Negative PCR FLU A (Negative); PCR FLU B Negative PCR FLU B (Negative); PCR RSV Negative PCR RSV (Negative)
[2022-05-07 09:02] LABS: SARS PCR* Negative SARS-CoV-2 (Negative)
[2022-05-07 09:43] VITALS: BP 122/69; PULSE 71; RESP 18; O2SAT 100
--- NOTE | 2022-05-07 09:52 | CRLHL7_ITS ---
For Patients: As a result of the Century Cures Act, medical imaging exams and procedure reports are released immediately into your electronic medical record. You may view this report before your referring provider. If you have questions, please contact your health care provider. INDICATION: Shortness of breath, chest pain COMPARISON: none TECHNIQUE: CT volumetric acquisition was performed of the thorax during intravenous infusion of 98 cc Isovue 370 nonionic intravenous contrast. Please note that all CT scans at this facility use dose modulation, iterative reconstruction, and/or weight-based dosing when appropriate to reduce radiation dose to as low as reasonably achievable. FINDINGS: The CT images are of acceptable quality and demonstrate normal uniform vascular enhancement within the pulmonary arteries. There are no suspicious filling defects which would indicate pulmonary thromboemboli. There is no evidence of pleural or pericardial fluid. The heart and thoracic aorta appear normal. There is no evidence of lymphadenopathy within the central mediastinum or within either axilla. On lung window settings, there is no evidence of pneumothorax. The pulmonary parenchyma has uniform density and there is no evidence of hemorrhage or pneumonia. Trace atelectasis noted in both lung bases. Osseous structures are within normal limits. The visualized upper abdomen is normal. Normal visualized thyroid. Mild bilateral gynecomastia. IMPRESSION: No evidence of pulmonary thromboembolism. Please note that all CT scans at this facility use dose modulation, iterative reconstruction, and/or weight-based dosing when appropriate to reduce radiation dose to as low as reasonably achievable. Dictated by Davey Tiwari MD @ 05/07/2022 10:57:19 AM (Electronically Signed)
[2022-05-07 09:56] LABS: Creatinine, Point-of-Care* 1.6 mg/dl (0.6-1.3)
== END 2022-05-07 12:27 | disposition home or self-care (01) ==
PROVIDERS: Family Medicine; Emergency Provider Family Medicine
DX: R07.9 Chest pain, unspecified (principal); R68.89 Other general symptoms and signs
CPT/HCPCS: 36415; 71260; 80053; 82565; 83735; 84443; 84484; 85025; 85379; 86140; 87502; 87634; 87635; 93005; 96360; 99285; J7030; Q9967

== ENCOUNTER 2022-06-04 19:16 | Outpatient (CLI) | payer OTHER, SELFPAY ==
--- OUTSIDE RECORDS SUMMARY | 2022-06-04 19:19 | XMS_ITS | Clinical Summary ---
:1990 Author Organization [employer] [place] [address] Care Team Providers Name Role Phone Pcp, No Primary Care Provider Unavailable Allergies No known active allergies Medications Medication [...] Encounters Date Type Specialty Care Team Description 05/30/2022 Orders Only Trae Marquez 1 scan: (1 -Ord) Zio Final Results 05/14/2022 Hospital Encounter Chato Greenberg Elevate d serum MD Adama creatinine 05/14/2022 Ancillary Procedure 05/13/2022 Travel 05/10/2022 Orders Only Scanner 1 scan: (1-Ord) INCOMING RECORD S-HOLTER MONITOR, [facility], 05/1005/08/2022 Office Visit Chato Greenberg CV General Ca rdiology MD Adama Est (F/U for CP ) 05/08/2022 Orders Only Chato Greenberg <No scans att ached> MD Adama 05/08/2022 Travel 05/07/2022 Orders Only Golden Cordova 2 scans: (2- Ord) Final 05/03/2022 Hospital Encounter Diaz Wyatt MD 05/03/2022 Orders Only 2 scans: (2-Ord ) ECHO COMPLETE WO CON TRAST ([id number]) 05/03/2022 Orders Only Staff, Other Clinical 1 scan : (1-Ord) <No description> from Last 3 Months Immunizations Name Administration Dates Next Due DTP 02/21/1995, 02/22/1994, 06/09/1990, 01/27/1990, 1989 HIB HbOC (HibTITER) 06/09/1990 Hepatitis B (Peds) 09/19/2000, 12/29/1999, 12/18/1999 Influenza, IIV3 (Age >=3 years) 05/01/2000 MMR 02/10/2002, 10/26/1990 Oral Polio Vaccine 02/21/1995, 02/22/1994, 01/27/1990, 1989 Td (Age >=7 Years) 02/10/2002 Tdap 10/06/2012 Tuberculin (PPD) 05/12/2017, 11/27/2016 Social History Tobacco Use Types Packs/Day Years Used Date Smoking Tobacco: Never Smokeless Tobacco: Never Tobacco Cessation: Counseling Given: Yes Alcohol Use [...] more drinks on one Never 08/22/2018 occasion? Sex Assigned at Date Recorded Not on file COVID-19 Exposure Response Date Recorded In the last 10 days, have you been in contact No / Unsure 05/13/2022 12:14 PM [employer]Y PL[employer] CRUSHER OPERATOR with someone who was confirmed or suspected to have Coronavirus/COVID-19? Obstetrics History Last Filed Vital Signs Vital Sign Reading Time Taken Comments Blood Pressure 132/72 05/08/2022 11:26 AM [employer]US[employer] OPERATOR Pulse 70 05/08/2022 11:26 AM [employer] CRUSHER OPERATOR Temperature 37 ??C (98.6 ??F) 11/17/2019 2:11 PM CDT Respiratory Rate 14 04/03/2017 1:28 PM CDT Oxygen Saturation 99% 05/08/2022 11:26 AM [employer] CRUS[employer] OPERATOR Inhaled Oxygen Concentration - - Weight 102.5 kg (226 lb) 05/08/2022 11:26 AM [employer] PL[employer] CRUSHER OPERATOR Height 188 cm (6' 2) 05/08/2022 11:26 AM [employer] CRUS[employer] OPERATOR Body Mass Index 29.02 05/08/2022 11:26 AM [employer] CRUSHER OPERATOR Plan of Treatment Health Maintenance Due Date Last Done Comments COVID-19 vaccine series (#1) 01/16/1990 HIV for age 15-65 2004 Hepatitis C screening for age 0107/19/2007 18-79 Depression screening for age 12+ 11/27/2017 11/27/2016, 04/2016 Influenza for age 9-49 02/21/2022 05/01/2000 Tetanus booster 10/06/2022 10/06/2012, 02/10/2002 BMI (ht and wt on same day) for 05/08/2023 05/08/2022, 07/2018, age 18+ 04/03/2017, Additional history exists Tdap Completed 10/06/2012 Procedures Procedure Name Priority Date/Time Associated Diagnosis Comme nts EXTENDED HOLTER Routine 05/30/2022 Routine medical exam Resu lts for this procedure are i n the results section. US RENAL AND Routine 05/14/2022 1:11 PM Elevated serum Results for this BLADDER COMPLETE [employer] OPERATOR creatinine procedure a re in the results section. ECHO STRESS WO CULLEN 05/14/2022 11:04 Routine medical exam R esults for this CONTRAST AM [employer] OPERATOR procedure are i n the results section. SCAN 05/10/2022 12:00 Results for this CORRESP-DIAGNOSTICS AM [employer] OPERATOR procedur e are in the results section. UA W/ SEDIMENT EXAM Routine 05/08/2022 1:26 PM Elevated serum Results for this REFLEXED PER [employer] OPERATOR creatinine procedure are i n CRITERIA the results section. BASIC METABOLIC Routine 05/08/2022 1:00 PM Elevated serum Resu lts for this PANEL [employer] OPERATOR creatinine procedure are i n the results section. EKG 12 LEAD Routine 05/08/2022 11:27 Routine medical exam Res ults for this AM [employer]USHER OPERATOR procedure are i n the results section. HOLTER MONITOR 48 Routine 05/07/2022 12:00 Palpitations HOURS AM [employer] CRUSHER OPERATOR ECHO COMPLETE WO Routine 05/03/2022 2:35 PM Palpitations Resul ts for this CONTRAST [employer] OPERATOR procedure are i n the results section. SCAN-HOLTER MONITOR 05/03/2022 12:00 Resu lts for this AM [employer]US[employer] OPERATOR procedure are i n the results section. from Last 3 Months Results ZIO PATCH XT - weekly to monthly symptoms. Specifiy duration 3 days, 1 week, or 2 weeks (05/30/2022) Narrative This result has an attachment that is no t available. Chato Greenberg MD CARDIAC SERVICES ORD US RENAL AND BLADDER COMPLETE (05/14/2022 1:11 PM [employer]USHER OPERATOR) Anatomical Region Laterality Modality Abdomen, AORTA, KIDNEYS Ultrasound Specimen (Source) Anatomical Collection Method Collection Time Re ceived Time Location / / Volume Laterality 05/15/2022 9:03 AM [employer]Y [employer] CRUSHER OPERATOR Impressions 05/15/2022 9:03 AM [employer] CRUSHER OPERATOR 1. Normal ultrasound examination of the kidneys and bladder. Dictated by Esthela Brown MD @ May 15 2022 ??9:03AM (Electronically Signed) ?? Narrative 05/15/2022 9:03 AM [employer]Y [employer] CRUSHER OPERATOR For Patients: ??As a result of the Cures Act, medical imaging exams and procedure report s are released immediately into your [facility] medical record. ??You may view this report before your referring provider. ??If you have questions, please contact your health care provider. INDICATION: Elevated serum creatinine corpus non andrew hnique ultrasound examination of the kidneys and bladder. FINDINGS: The right kidney is measuring 12.7 x 6.8 x 5.3 cm and the left kidney is measuring 11.8 x 5.2 x 5.6 m. Normal echogenic pattern of the renal cortex bilaterally. Normal thickness of the renal cortex bila terally measuring 1.7 cm on the right an d 1.4 cm on the left. No obstructive uropathy or perinephric pathology stopped ureteral jets identified bilaterally. Prevoid bladder volume is 370 cc and postvoid bladder volume is 11 cc. Procedure Note Esthela Brown MBBS - 05/15/2022For matting of this note might be different from the original. For Patients: As a result of the Cures Act, medical imaging exams and procedure reports are released immediately into your electronic medical record. You may view this report before your referring provider. If you have questions, please contact [facility] health care provider. INDICATION: Elevated serum creatinine corpus non andrew hnique ultrasound examination of the kidneys and bladder. FINDINGS: The right kidney is measuring 12.7 x 6.8 x 5.3 cm and the left kidney is measuring 11.8 x 5.2 x 5.6 m. Normal echogenic pattern of the renal cortex bilaterally. Normal thickness of the renal cortex bilaterally measuring 1.7 cm on the right and 1.4 cm on the le ft. No obstructive uropathy or perinephric pathology stopped ureteral jets identified bilaterally. Prevoid bladder volume is 370 cc and postvoid bladder volume is 11 cc. IMPRESSION: 1. Normal ultrasound examination of the kidneys and bladder. Dictated by Esthela Brown MD @ May 15 2022 9:03AM (Electronically Signed) Chato Greenberg MD US ECHO STRESS WO CONTRAST (05/14/2022 11:04 AM [employer] CRUSHER OPERATOR) P athologist Signature EJECTION 55 - 60% FRACTION Anatomical Region Laterality Modality HEART Other, Ultrasound, O ther Specimen (Source) Anatomical Collection Method Collection Time Re ceived Time Location / / Volume Laterality 05/14/2022 11:04 AM [employer]Y [employer] CRUSHER OPERATOR Narrative 05/14/2022 12:38 PM [employer]Y [employer] CRUSHER OPERATOR STRESS ECHOCARDIOGRAM CHATO RAMIREZ ? Accessi on#: ?? [id number] : ?1990 31 years Study Date: ?? 05/14/2022 11:04:12 AM Gender: M ?BP: ? 124/62 mmHg Height: 188.00 cm ?BSA: ?2.29 m? ?? Weight: 103.00 kg ?Tech: ? RML ? Referring MD: CHATO GREENBERG Site: ? [facility] at [address] [place] [address] Reading Location: [place] [address] Procedure: Stress Echo. Norman stress ech o. Indication for study: Fatigue, tachycard ia, CP Cardiac Rhythm: Normal sinus.Study quali ty: Good. Final Impressions: 1. Maximum stress test with 98.3% of ag e predicted maximum heart rate achieved. 2. During stress exam the patient devel oped knee pain, fatigue. 3. Patient had evidence of pre-excitati on at baseline that persisted throughout stress. 4. The EKG was non-diagnostic with non- specific ST and T-wave changes at baseline that persisted during and after stress. 5. Post stress, normal left ventricular size, normal global systolic function with an estimated EF of 65 to 70%. 6. Negative stress echo for ischemia. Stress Data: ? HR ?Systolic Diastolic Time Duration Minutes Seconds Baseline 8 1 bpm ?124 ?62 mmHg ? 12 :51 ? Peak ? 184 bpm ?? 182 ?80 mmHg Max Pred HR ?187 % of Max ? 98% Double Product [id number] Echo Findings:This is a negative stress echo test for ischemia. Post stress, normal left ventricular size, normal global systolic function with an estimated EF of 65 to 70%. LV regional wall motion abnormalities are not present post exercise. EKG:During exercise, the patient develop ed sinus tachycardia rhythm with pre- excitation. The EKG was non-diagnostic. Exam Protocol:The patient presents with no significant symptoms at baseline. The patient exercised 12 min 51 sec to stage V according to the Norman stress echo protocol. Test terminated due to fatigue. 1 7.2 METS were achieved. The patient achi eved a heart rate of 184 bpm which is 98.3% of maximum predicted heart rate. Maximum systolic blood pressure was 182 [place] [address]. M aximum stress test with 98.3% of age pre dicted maximum heart rate achieved. The blood pressure response was normal. The patient developed knee pain, fatigue during the stress exam. Low (less than 1% patt ual mortality rate) non invasive risk st ratification. Chamber Sizes and Function Normal left ventricular size, normal joseph bal systolic function with an estimated EF of 55 - 60%. LV regional wall motion abnormalities are not present. Left atrial size is normal. Right ventricular cavit y size is normal, global systolic RV fun ction is normal. The right atrium is normal. Masses, Effusion, Shunts There is no pericardial effusion. MEASUREMENTS AND CALCULATIONS 2-D Measurements and LV Function: HR 81 bpm . This study was interpreted by an [facility] redited facility. ??Final ?? Procedure Note Trae Yeung MD - 05/14/2022Fo rmatting of this note might be different from the original. STRESS ECHOCARDIOGRAM CHATO RAMIREZ : 1990 31 years Study Date: 04/24 11:04:12 AM Gender: M BP: 124/62 mmHg Height: 188.00 cm BSA: 2.29 m? ?? Weight: 103.00 kg Tech: RML Referring MD: CHATO GREENBERG Site: [facility] at [address] [place] [address] Reading Location: [place] [address] Procedure: Stress Echo. Norman stress ech o. Indication for study: Fatigue, tachycard ia, CP Cardiac Rhythm: Normal sinus.Study quali ty: Good. Final Impressions: 1. Maximum stress test with 98.3% of ag e predicted maximum heart rate achieved. 2. During stress exam the patient devel oped knee pain, fatigue. 3. Patient had evidence of pre-excitati on at baseline that persisted throughout stress. 4. The EKG was non-diagnostic with non- specific ST and T-wave changes at baseline that persisted during and after stress. 5. Post stress, normal left ventricular size, normal global systolic function with an estimated EF of 65 to 70%. 6. Negative stress echo for ischemia. Stress Data: HR Systolic Diastolic Time Duration Minutes Seconds Baseline 8 1 bpm 124 62 mmHg 12 :51 Peak 184 bpm 182 80 mmHg Max Pred HR 187 % of Max 98% Double Product [id number] Echo Findings:This is a negative stress echo test for ischemia. Post stress, normal left ventricular size, normal global systolic function with an estimated EF of 65 to 70%. LV regional wall motion abnormalities are not present post exercise. EKG:During exercise, the patient develop ed sinus tachycardia rhythm with pre- excitation. The EKG was non-diagnostic. Exam Protocol:The patient presents with no significant symptoms at baseline. The patient exercised 12 min 51 sec to stage V according to the Norman stress echo protocol. Test terminated due to fatigue. 17.2 METS were achieved. The patient achieved a heart r ate of 184 bpm which is 98.3% of maximum predicted heart rate. Maximum systolic blood pressure was 182 [place] [id number]. Maximum stress test with 98.3% of age predicted maximum heart rate achieve d. The blood pressure response was normal. The patient developed knee pain, fatigue during the stress exam. Low (less than 1% annual mortality rate) non invasive risk stratification. Chamber Sizes and Function Normal left ventricular size, normal joseph bal systolic function with an estimated EF of 55 - 60%. LV regional wall motion abnormalities are not present. Left atrial size is normal. Right ventricular cavity size is normal, global systolic RV function is n ormal. The right atrium is normal. Masses, Effusion, Shunts There is no pericardial effusion. MEASUREMENTS AND CALCULATIONS 2-D Measurements and LV Function: HR 81 bpm . This study was interpreted by an [facility] redited facility. Final Chato Greenberg MD ECHO ORD SCAN CORRESP-DIAGNOSTICS (05/10/2022 12:00 AM QU[employer]Y PL[employer] CRUSHER OPERATOR) Narrative This result has an attachment that is no t available. Scanner OTHER UA W/ SEDIMENT EXAM REFLEXED PER CRITERIA (05/08/2022 1:26 PM QU[employer]Y PLANT CRUSHER OPERATOR) [facility] Method Time Signature COLOR Yellow Yellow Color 05/08/2022 [facility] 1:28 PM QU[employer]Y [employer] CRUSHER OPERATOR LABORATORY- [facility] CLARITY Clear Clear 05/08/2022 [facility] Clarity 1:28 PM [employer] CRUSHER OPERATOR LABORATORY- [facility] SPECIFIC 1.015 1.010, 05/08/2022 [facility] GRAVITY,URINE 1.015, 1:28 PM [employer] CRUSHER OPERATOR LABORATORY- 1.020, 1.025 [facility] PH,URINE 7.5 6.0, 7.0, 05/08/2022 [facility] 8.0, 5.5, 1:28 PM [employer] CRUSHER OPERATOR LABORATORY- 6.5, 7.5, ANW 8.5 UROBILINOGEN,Q Normal Normal EU/dl 05/08/2022 [facility] UALITATIVE 1:28 PM [employer] CRUSHER OPERATOR LABORATORY- [facility] PROTEIN, URINE Negative Negative 05/08/2022 [facility] mg/dL 1:28 PM [employer] CRUSHER OPERATOR LABORATORY- [facility] GLUCOSE, URINE Negative Negative 05/08/2022 [facility] mg/dL 1:28 PM [employer] CRUSHER OPERATOR LABORATORY- [facility] KETONES,URINE Negative Negative 05/08/2022 [facility] mg/dL 1:28 PM QUARRY [employer] CRUSHER OPERATOR LABORATORY- [facility] BILIRUBIN,URIN Negative Negative 05/08/2022 [facility] E 1:28 PM QU[employer] CRUSHER OPERATOR LABORATORY- [facility] OCCULT Negative Negative 05/08/2022 [facility] BLOOD,URINE 1:28 PM [employer]Y [employer] CRUSHER OPERATOR LABORATORY- [facility] NITRITE Negative Negative 05/08/2022 [facility] 1:28 PM [employer] CRUSHER OPERATOR LABORATORY- [facility] LEUKOCYTE Negative Negative 05/08/2022 [facility] ESTERASE 1:28 PM [employer] CRUSHER OPERATOR LABORATORY- [facility] Specimen Anatomical Collection Method Collection Time Receive d Time (Source) Location / / Volume Laterality Urine URINE SPECIMEN / Non-Blood / 05/08/2022 1:26 PM 05/08 1:26 Unknown Unknown QU[employer] CRUSHER OPERATOR PM [employer] CRUSHER OPERATOR Chato Greenberg MD URINE Performing Organization Address City/State/ZIP Code Phon e Number [facility] [address] [place], [place] [address] (ABNORMAL) BASIC METABOLIC PANEL (05/08/2022 1:00 PM QU[employer]Y [employer] CRUSHER OPERATOR) [facility] Method Time Signature SODIUM 137 135 - 145 05/09/2022 [facility] mmol/L 2:00 AM [employer]Y PL[employer] CRUSHER OPERATOR [facility] POTASSIUM 4.6 3.5 - 5.0 05/09/2022 [facility] mmol/L 2:00 AM [employer]Y PL[employer] CRUSHER OPERATOR [facility] CHLORIDE 106 98 - 110 05/09/2022 [facility] mmol/L 2:00 AM [employer] CRUSHER OPERATOR [facility] CO2,TOTAL 22 21 - 31 05/09/2022 [facility] mmol/L 2:00 AM [employer] CRUSHER OPERATOR [facility] ANION GAP 9 5 - 18 05/09/2022 [facility] 2:00 AM QU[employer]Y PL[employer] CRUSHER OPERATOR [facility] GLUCOSE 84 65 - 100 05/09/2022 [facility] mg/dL 2:00 AM [employer]Y [employer] CRUSHER OPERATOR [facility] CALCIUM 9.2 8.5 - 10.5 05/09/2022 [facility] mg/dL 2:00 AM [employer]ARRY [employer] CRUSHER OPERATOR [facility] BUN 13 8 - 25 05/09/2022 [facility] mg/dL 2:00 AM [employer]ARRY PL[employer] CRUSHER OPERATOR [facility] CREATININE 1.46 (H) 0.72 - 05/09/2022 [facility] 1.25 mg/dL 2:00 AM [employer]ARRY [employer] CRUSHER OPERATOR [facility] BUN/CREAT RATIO 9 (L) 10 - 20 05/09/2022 [facility] 2:00 AM [employer]ARRY PLANT CRUSHER OPERATOR [facility] eGFR 65 (L) >90 05/09/2022 [facility] mL/min/1.7 2:00 AM QUARRY PL[employer] CRUSHER OPERATOR LABORATORY-[facility] Comment: As of 2021, eGFR is calcu lated by the CKD-EPI creatinine equation without race adjustment. eGFR can be inf luenced by muscle mass, exercise, and diet. The reported eGFR is an estimation only and is only applicable if the renal function is stable. Specimen Anatomical Collection Method / Collection Time Recei kem Time (Source) Location / Volume Laterality Blood BLOOD SPECIMEN / Venipuncture / 05/08/2022 1:00 2021 1:00 Unknown Unknown PM [employer]Y PLANT CRUSHER OPERATOR PM [employer]Y [employer] CRUSHER OPERATOR Chato Greenberg MD CHEMISTRY Performing Organization Address City/State/ZIP Code Phon e Number [facility] [address] [place] [id number] LABORATORY-CENTRAL 1999 LABORATORY EKG 12 LEAD (05/08/2022 11:27 AM QUARRY PLANT CRUSHER OPERATOR) [facility] gist Method Time Signature Interpretation Sinus rhythm with sinus arrhythmia with short GA ST & T wave abnormality, consider inferior ischemia Abnormal ECG No previous ECGs available Ventricular Rate 73 BPM Atrial Rate 73 BPM P-R Interval 110 ms QRS Duration 96 ms QT 362 ms QTc 398 ms P [place] 80 degrees R [place] 22 degrees T [place] -86 degrees Specimen Anatomical Collection Method Collection Time Receive d Time (Source) Location / / Volume Laterality 05/08/2022 11:27 05/08/2022 1:06 AM QUARRY PLANT CRUSHER OPERATOR PM [employer]Y [employer] CRUSHER OPERATOR Chato Greenberg MD EKG ORD HOLTER MONITOR 48 HOURS (05/07/2022 12:00 AM QU[employer]Y PLANT CRUSHER OPERATOR) Narrative This result has an attachment that is no t available. Diaz Wyatt MD CARDIAC SERVICES ORD ECHO COMPLETE WO CONTRAST (05/03/2022 2:35 PM QU[employer]Y PL[employer] CRUSHER OPERATOR) P athologist Signature AORTIC VALVE 8 mmHg MEAN PG EJECTION 67 % FRACTION LVEDD 5.5 cm EJECTION 65 - 70% FRACTION Anatomical Region Laterality Modality HEART Ultrasound Specimen (Source) Anatomical Collection Method Collection Time Re ceived Time Location / / Volume Laterality 05/03/2022 2:12 PM QUARRY PLANT CRUSHER OPERATOR Narrative 05/03/2022 3:00 PM QUARRY PLANT CRUSHER OPERATOR ECHOCARDIOGRAM CHATO RAMIREZ ? Accessi on#: ?? [id number] : ?1990 31 years Study Date: ?? 05/03/2022 2:12:29 PM Gender: M ?BP: ? 154/80 mmHg Height: 185.00 cm ?BSA: ?2.26 m? ?? Weight: 102.00 kg ?Tech: ? MCK ? Referring MD: DIAZ WYATT Site: ? [facility] Reading Location: [facility] Procedure: 2D, [...] . This study was interpreted by an [facility] redited facility. CC: [facility] and [facility]. ??Final ?? Procedure Note Chato Greenberg MD - 05/03/2022Fo rmatting of this note might be different from the original. ECHOCARDIOGRAM CHATO RAMIREZ : 1990 31 years Study Date: 04/23 2:12:29 PM Gender: M BP: 154/80 mmHg Height: 185.00 cm BSA: 2.26 m? ?? Weight: 102.00 kg Tech: [place] Referring MD: DIAZ WYATT Site: [facility] Reading Location: [facility] Procedure: 2D, [...] . This study was interpreted by an [facility] redited facility. CC: [facility]. Final Diaz Wyatt MD ECHO ORD SCAN-HOLTER MONITOR (05/03/2022 12:00 AM QUARRY PLANT CRUSHER OPERATOR) Narrative 05/03/2022 12:00 AM QUARRY PLANT CRUSHER OPERATOR This result has an attachment that is no t available. Ordered by an unspecified provider. Other Clinical Staff OTHER from Last 3 Months Insurance Payer Benefit Plan / Subscriber ID Effective Dates Phone Addre ss Type Group PREFERRED ONE PREFERRED ONE [id number] 2018-Present [address] [place] [address] Care Teams Crossbar Switch Adjuster Relationship Specialty Start Date End Date Pcp, No PCP - General 05/13/22 .
--- NOTE | 2022-06-11 08:39 | W.PM.SLEEP ---
Sleep Study Details Details Interpreting Provider: Norberto Pascual MD Date of Sleep Study: 06/04/22 Sleep Study Details: STUDY TYPE:? Home ? BMI:? 29 ORDERING PROVIDER:? Madonna INDICATION:? Concerns about sleep apnea ? SLEEP SUMMARY:? 391.1 monitored minutes RESPIRATORY SUMMARY:? AHI 2.9, supine AHI 3.5 Low oxygen 91 Snoring 0.4% PERIODIC LIMB MOVEMENTS OF SLEEP:? Not recorded CARDIAC:? Range 47-100, mean 57.5 IMPRESSION:? This study does not demonstrate clinically significant obstructive sleep apnea. If sleep disorder is strongly suspected then an in-lab study may be indicated RECOMMENDATION: See above
== END 2022-06-04 19:17 | disposition home or self-care (01) ==
LOC: SLEEP 19:17
PROVIDERS: Visit Provider Otolaryngology
DX: G47.10 Hypersomnia, unspecified (principal)
CPT/HCPCS: 95806

== ENCOUNTER 2022-09-17 15:37 | Outpatient (CLI) | payer OTHER, SELFPAY | END 2022-09-17 15:38 | disposition home or self-care (01) | PROVIDERS: PCP Otolaryngology; Visit Provider Internal Medicine | DX: E78.5 Hyperlipidemia, unspecified (principal); E03.9 Hypothyroidism, unspecified; F33.9 Major depressive disorder, recurrent, unspecified; F41.9 Anxiety disorder, unspecified | CPT/HCPCS: 80048; 84439; 84443 ==

== ENCOUNTER 2023-01-29 16:01 | Outpatient (CLI) | payer OTHER, SELFPAY | END 2023-01-29 16:02 | disposition home or self-care (01) | PROVIDERS: PCP Internal Medicine; Visit Provider Internal Medicine | DX: E34.9 Endocrine disorder, unspecified (principal); R10.31 Right lower quadrant pain; E78.5 Hyperlipidemia, unspecified; E03.9 Hypothyroidism, unspecified | CPT/HCPCS: 82671; 84270; 84402; 84403 ==

== ENCOUNTER 2023-02-28 12:14 | Outpatient (CLI) | payer OTHER, SELFPAY | END 2023-02-28 12:15 | disposition home or self-care (01) | LOC: NFLDREF 03-02 05:41 | PROVIDERS: PCP Internal Medicine; Referring Provider Internal Medicine; Visit Provider Internal Medicine | DX: E34.9 Endocrine disorder, unspecified (principal) | CPT/HCPCS: 84270; 84402; 84403 ==

== ENCOUNTER 2023-04-25 09:03 | Day surgery (SDC) | payer OTHER, SELFPAY ==
[2023-04-25] VITALS (13 sets, daily range): BP systolic 115–146; BP diastolic 66–91; PULSE 70–100; RESP 16–20; TEMP 36.4–37.3; O2SAT 94–99; BMI 29.2
[2023-04-25] MEDS: LACTATED RINGERS 1000 ML 1,000 ML 100 ML IV (08:55)
[2023-04-25] MEDS: SODIUM CHLORIDE 0.9 % (FLUSH) 10 ML SYRINGE IVF (09:33)
[2023-04-25] MEDS: OXYMETAZOLINE 0.05% NASAL SPRAY 2 SPRAY NOSTRIL-B (10:18)
[2023-04-25] MEDS: BUPIVACAINE 0.5%/EPINEPHRINE 0.9 MG (30.9 ML) INJECTION (10:40)
[2023-04-25] MEDS: AYR SALINE NASAL GEL 1 APPLIC NOSTRIL-B (10:50)
[2023-04-25] MEDS: MUPIROCIN 1 GM PACKET 1 APPLIC TOPICAL (10:51)
--- NOTE | 2023-04-25 10:56 | SUR.OPER ---
SURGEON DECLINES OFFER TO SEND EXCISED TISSUES TO PATHOLOGY.
--- NOTE | 2023-04-25 11:07 | W.PM.ENTPROC ---
Procedure Note Date of procedure: 04/25/23 Procedure: Preoperative diagnosis nasal obstruction, nasal headaches, deviated septum, inferior turbinate hypertrophy mild, left middle turbinate alexandro bullosa Postoperative diagnosis same Procedure nasal septoplasty, conservative submucous resection anterior head of inferior turbinates, endoscopic partial resection left middle turbinate alexandro bullosa Under general endotracheal anesthesia patient was prepped draped usual fashion the nose was decongested and injected. A right hemitransfixion incision was made. Bilateral anterior and posterior tunnels were created. A vertical incision was made to the cartilage and the posterior deflected portions of septal bone and cartilage were resected. A large piece was trimmed and returned to intraseptal space. There was redundant left premaxillary wing deformity that was excised with a 15 blade leaving a normal amount of cartilage for dorsal and tip support. The hemitransfixion was then closed with 2 4-0 chromic sutures. Stab incision was made in the anterior of the right inferior turbinate a tunnel created with a Katherine dissector. The alexandro bone was outfractured and very conservative anterior submucous resection performed. Hemostasis was achieved with the Coblation Wand. The posterior 90% of the inferior turbinate was left intact. This was repeated on the left side in identical fashion. The remainder procedure was done with the available assistance of a 0 degree endoscope. The alexandro bullosa was incised along its lateral aspect and then the bone was infractured and the turbinate was crushed with the Hung forceps. No tissue was removed. Silastic stents were secured with 3-0 nylon and a Merocel pack was placed in each side of the nose. The patient procedure well was taken recovery in satisfactory condition. Blood loss was 25 mL. Surgeon: Norberto Pascual MD
--- NOTE | 2023-04-25 11:32 | W.ANESCHARGE ---
Anesthesia Charges Start Date/Time Anesthesia Start Date: 04/25/23 Anesthesia Start Time: 10:26 Stop Date/Time Anesthesia Stop Date: 04/25/23 Anesthesia Stop Time: 11:23
[2023-04-25] MEDS: fentaNYL 100 MCG/2 ML inj 50 MCG IVP (11:34)
--- NOTE | 2023-04-25 11:34 | W.ANESCHARGE ---
Anesthesia Charges Start Date/Time Anesthesia Start Date: 04/25/23 Anesthesia Start Time: 10:26 Stop Date/Time Anesthesia Stop Date: 04/25/23 Anesthesia Stop Time: 11:23
--- NOTE | 2023-04-25 11:55 | SUR.OPER ---
PATIENT QUESTIONS ANSWERED SATISFACTORILY PREOPERATIVELY. PATIENT BROUGHT TO OR #1 PER CART. Patient positioned supine on OR #1 bed. Perioperative team tucked arms bilaterally at patient side with drawsheet. ? Final approval of positioning by surgeon.
[2023-04-25] MEDS: OXYCODONE 5 MG TABLET PO (12:01)
[2023-04-25] MEDS: IBUPROFEN 200 MG TABLET PO (12:01)
[2023-04-25] MEDS: ACETAMINOPHEN 325 MG TABLET PO (12:01)
== END 2023-04-25 13:03 | disposition home or self-care (01) ==
LOC: OR 09:04
PROVIDERS: PCP Internal Medicine; Visit Provider Otolaryngology
PROC: (CPT 31231; principal; 2023-04-25 10:15)
DX: J34.2 Deviated nasal septum (principal); J34.3 Hypertrophy of nasal turbinates; J34.89 Other specified disorders of nose and nasal sinuses; R51.9 Headache, unspecified
CPT/HCPCS: 30520; 30140; 31240; 00160; A9270; J0330; J1100; J2250; J2310; J2405; J2704; J3010; J7120

== ENCOUNTER 2024-02-25 08:19 | Outpatient (CLI) | payer OTHER, SELFPAY ==
--- OUTSIDE RECORDS SUMMARY | 2024-02-25 08:23 | XMS_ITS | Clinical Summary ---
Author Organization [facility] Address [place], [place] [address] Care Team Providers Care Art Objects Supervisor Name Role Phone Pcp, No Primary Care Provider Unavailabl e Allergies No known active allergies Medications Medication Sig Dispensed Refills Start Date End Date Status cyclobenzaprine (FLEXERIL) 10 mg tabletIndications:Tho racic disc herniation Take 1 tablet by mouth at bedtime if needed for Muscle Spasm. 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 Major depressive disorder, recurrent episode, mo derate 06/13/2010 Adjustment disorder with depressed mood 04/14/20 09 Resolved Problems Problem Noted Date Diagnosed Date Resolved Date Depressive disorder, not elsewhere classified 05/29/20 06 08/27/2009 Immunizations Name Administration Dates Next Due DTP 02/21/1995, 4,06/09/1990,01/27/1990, 1989 HIB HbOC (HibTITER) 06/09/1990 Hepatitis B (Peds) 09/19/2000,12/29/1999, 000 Influenza, IIV3 (Age >=3 years) 05/01/2000 MMR 02/10/2002,10/26/1990 Oral Polio Vaccine 02/21/1995,02/22/1994, 990,1989 Td (Age >=7 Years) 02/10/2002 Tdap 10/06/2012 Tuberculin (PPD) 05/12/2017,11/27/2016 Social History Tobacco Use Types Packs/Day Years Used Date Smoking Tobacco: Never Smokeless Tobacco: Never Tobacco Cessation:Counseling Given: Yes Alcohol Use Standard Drinks/Week Comments Yes 0 (1 standard drink = 0.6 oz pur e alcohol) Social Connections Answer Date Recorded Frequency of Communication with Friends and Fami ly Not on file 05/08/2022 Financial Resource Strain Answer Date R ecorded Difficulty of Paying Living Expenses Not on file 06/23/2021 Difficulty of Paying Living Expenses Not on file 06/23/2021 Sex and Gender Information Value Date Recorded Sex Assigned at Not on file Gender Identity Not on file Sexual Orientation Not on file Obstetrics History Last Filed Vital Signs Vital Sign Reading Time Taken Comments Blood Pressure 132/72 05/08/2022 11:26 AM HEARING CONSULTANT Pulse 70 05/08/2022 11:26 AM HEARING CONSULTANT Temperature 37 ??C (98.6 ??F) 11/17/2019 2:11 PM CDT Respiratory Rate 14 04/03/2017 1:28 PM CDT Oxygen Saturation 99% 05/08/2022 11:26 AM HEARING CONSULTANT Inhaled Oxygen Concentration - - Weight 102.5 kg (226 lb) 05/08/2022 11:26 AM HEARING CONSULTANT Height 188 cm (6' 2) 05/08/2022 11:26 AM HEARING CONSULTANT Body Mass Index 29.02 05/08/2022 11:26 AM HEARING CONSULTANT Plan of Treatment Health Maintenance Due Date Last Done Comments HIV for age 15-65 2004 Hepatitis C screening for age 18-79 2007 Depression screening for age 12+ 11/27/2017 11/27/2016, 09/01/2015 Tetanus booster 10/06/2022 10/06/2012, 02/10/2002 BMI (ht and wt on same day) for age 18+ 05/08/2023 05/08/2022, 08/22/2018, 04/03/2017, Additional history exists COVID-19 vaccine series (2022- season) 2024 Influenza for age 9-49 02/22/2024 05/01/2000 Tdap Completed 10/06/2012 Pneumococcal series for age 6-64 Aged Out No longer eligible based on patient's age to complete this topic Care Teams Art Objects Supervisor Relationship Specialty Start Date End Date Pcp, No . PCP - General 05/13/22
[2024-02-26 10:43] LABS: Hematocrit 52.7 % (37.0-53.0); Hemoglobin* 17.5 gm/dL (13.5-17.5); Mean Corpuscular HGB Conc 33 gm/dL (32-36); Mean Corpuscular Hemoglobin 30 pg (26-34); Mean Corpuscular Volume 90 fL (80-100); Platelet Count* 197 K/uL (140-440); Red Blood Count 5.84 m/uL (4.30-5.90); White Blood Count* 6.64 K/uL (4.50-11.00)
[2024-02-26 10:44] LABS: Slide Review Reflex No
[2024-02-27 20:05] LABS: Testosterone, Adult Male 285 ng/dL (300-1080)
== END 2024-02-25 08:20 | disposition home or self-care (01) ==
PROVIDERS: PCP Internal Medicine; Visit Provider Internal Medicine
DX: E78.5 Hyperlipidemia, unspecified (principal); E03.9 Hypothyroidism, unspecified; E34.9 Endocrine disorder, unspecified
CPT/HCPCS: 84403; 84443; 85027